=== PATIENT | female | born 1960 | race Caucasian/White ===

== ENCOUNTER 2018-05-30 16:45 | Emergency (ER) | payer OTHER ==
[~2018-05-30] VITALS: Ht 160 cm; Wt 97.5 kg
--- NOTE | 2018-05-30 16:50 | NUR ---
PT BIB C/O Chest pain "was at work around 3pm started having pain on chest pressure radiates to lef arm" pt is aaox4, not in respiratory distress, kept rested and comfortable. awaiting er md for eval.
--- NOTE | 2018-05-30 17:30 | NUR ---
LABS DRAWNED AND SENT TO LAB. AWAITING RESULTS.
--- NOTE | 2018-05-30 17:37 | NUR ---
RADIOLOGY AT BEDSIDE FOR XRAY.
[2018-05-30 17:43] LABS: BASOPHILS % (AUTO) 0.5 % (0.0-2.0); EOSINOPHILS % (AUTO) 1.2 % (0.0-6.0); HEMATOCRIT 42 % (33-45); HEMOGLOBIN 13.8 g/dL (11.5-14.8); LYMPHOCYTES # (AUTO) 1.5 /CMM (0.8-4.8); LYMPHOCYTES % (AUTO) 20.2 % (20.0-44.0); MEAN CORPUSCULAR HGB CONC 33 g/dl (31.0-36.0); MEAN CORPUSCULAR VOLUME 87 fL (82-100); MONOCYTES # (AUTO) 0.4 /CMM (0.1-1.30); MONOCYTES % (AUTO) 5.8 % (2.0-12.0); NEUTROPHILS # (AUTO) 5.4 /CMM (1.8-8.9); NEUTROPHILS % (AUTO) 72.3 % (43.0-81.0); PLATELET COUNT (AUTO) 275 /CMM (150-450); RED BLOOD CELL COUNT(AUTO) 4.84 MIL/uL (4.0-5.2); WHITE BLOOD COUNT (AUTO) 7.4 K/uL (4.3-11.0)
[2018-05-30 17:53] LABS: CALCIUM, SERUM 9.5 mg/dL (8.5-10.1); CREATININE 0.6 mg/dL (0.6-1.3); POTASSIUM 3.6 mmol/L (3.5-5.1)
--- NOTE | 2018-05-30 18:06 | NUR ---
CRITICAL LAB RESULT RECEIVED. DR. OROURKE AWARE.
--- NOTE | 2018-05-30 18:09 | NUR ---
[facility] CALLED,SPOKE WITH [facility], FACESHEET/LABS AND EKG FAXED REQUESTED
[2018-05-30] MEDS ORDERED: ASPI-1169 PO (18:18)
[2018-05-30] MEDS ORDERED: LEVO112T2 PO (18:18)
[2018-05-30] MEDS ORDERED: ENOXAPARIN SODIUM 60 MG/0.6 ML DISP.SYRIN SQ ONE ×2 (18:30→18:35)
[2018-05-30] MEDS ORDERED: ASPIRIN 81 MG TAB.CHEW PO ONE (18:30)
[2018-05-30] MEDS ORDERED: ATORVASTATIN 40 MG TABLET PO SCH (18:30)
--- NOTE | 2018-05-30 18:30 | NUR ---
[facility] CALLED. ETA 20 MIN
[2018-05-30] MEDS ORDERED: ENOXAPARIN SODIUM 40 MG/0.4 ML DISP.SYRIN SQ ONE (18:35)
[2018-05-30] MEDS ORDERED: ATORVASTATIN 40 MG TABLET ONE (18:35)
[2018-05-30] MEDS ORDERED: ASPIRIN 81 MG TAB.CHEW ONE (18:35)
[2018-05-30 18:52] VITALS: BP 149/89
--- NOTE | 2018-05-30 19:05 | NUR ---
GAVE REPORT TO NIKITA PETER FOR [facility].
--- NOTE | 2018-05-30 19:16 | NUR ---
REPORT GIVEN TO NIKITA LUCIA FOR [facility] AT [facility].
== END 2018-05-30 19:20 | disposition short-term general hospital (02) ==
LOC: ER 16:49
DX: I21.4 Non-ST elevation (NSTEMI) myocardial infarction (principal); I10 Essential (primary) hypertension; E07.9 Disorder of thyroid, unspecified; Z79.82 Long term (current) use of aspirin; Z79.899 Other long term (current) drug therapy
CPT/HCPCS: 36415; 71045-TC; 80048-TC; 83880; 84484-TC; 85025-TC; 85730-TC; J1650

== ENCOUNTER 2021-10-13 20:28 | Emergency (ER) | payer OTHER ==
[~2021-10-13] VITALS: Ht 160 cm; Wt 95.3 kg
[~2021-10-13 20:28] MED LIST: ASPI-1169 PO; LEVO112T2 PO
--- NOTE | 2021-10-13 21:51 | NUR ---
PATIENT BIBS C/O MECHANICAL TRIP AND FALL ON APPLE SAUCE. PATIENT COMPLAINING OF LEFT THIGH PAIN NO HT NO KO ON BLOOD THINNERS. PATIENT ALERT AND ORIENTED X3. AMBULATORY WITH NON LABORED BREATHING IN BED 009 AWAITING MD ESCOBEDO.
[2021-10-13 23:07] VITALS: BP 174/87
--- NOTE | 2021-10-13 23:07 | NUR ---
Patient discharged to home in stable condition. Written and verbal after care instructions given. Patient verbalizes understanding of instruction.
== END 2021-10-13 23:08 | disposition home or self-care (01) ==
LOC: ER 20:31
DX: S70.02XA Contusion of left hip, initial encounter (principal); I10 Essential (primary) hypertension; Z79.899 Other long term (current) drug therapy; W01.0XXA Fall on same level from slipping, tripping and stumbling without subsequent striking against object, initial encounter; Y93.89 Activity, other specified; Y92.512 Supermarket, store or market as the place of occurrence of the external cause; Y99.8 Other external cause status
CPT/HCPCS: 73502